=== PATIENT | female | born 1995 | race Caucasian/White ===

== ENCOUNTER 2016-11-20 13:47 | Emergency (ER) | payer OTHER ==
[2016-11-20 16:28] VITALS: BP 92/61
[2016-11-20] MEDS ORDERED: Ondansetron ODT TAB* 4 MG PO ONE ×2 (17:10→18:12)
--- NOTE | 2016-11-21 07:53 | UC ---
Chance Gale Aidan, scribed for Carmelita Dexter MD on 11/20/16 at 1722 . Dizzy HPI HPI Summary: 21 y/o female presents to the Urgent Care with a complaint of dizziness / with some vertigo, n/v, palpitations, and dehydration that began this morning when she woke up. Her dizziness is described as seeing the room spinning up and around. It is aggravated by movement. Last night, she had several alcoholic drinks, and not much water. [place] dizzy, but particularly bad this morning. She is concerned 2/2 this has happened several times after alcohol, and feels like it is worse than an expected hangover. No recent illness, altthough Several days ago, she lost her voice. Pt denies any diarrhea, urinary symptoms, or rash. Her last period was a week ago. Pain associated with her symptoms is 3/10. Denies hx head trauma, cardiac issues, dm. - History Of Current Complaint Chief Complaint: UCDizziness Stated Complaint: VOMITING,DIZZY Hx Obtained From: Patient Hx Last Menstrual Period: 11/14/16 ?: No Onset/Duration: Sudden Onset, Lasting Hours, Still Present Timing: Constant Severity Initially: Moderate Severity Currently: Moderate Pain Intensity: 3 Pain Scale Used: 0-10 Numeric Character: Dizzy - see HPI Aggravating Factor(s): Exertion - movement Alleviating Factor(s): Nothing - unknown Associated Signs And Symptoms: Positive: Vomiting. Negative: Negative - dizziness, dehydration, vomiting, confusion, mild cough - Risk Factors Cardiac Risk Factors: Smoking - former smoker - Allergies/Home Medications Allergies/Adverse Reactions: Allergies Allergy/AdvReac Type Severity Reaction Status Date / Time Nickel Allergy Severe Rash Verified 11/20/16 16:29 Thimerosal Allergy Unknown Unknown Verified 11/20/16 16:29 Reaction Details Latex Allergy Rash Verified 11/20/16 16:29 PMH/Surg Hx/FS Hx/Imm Hx Previously Healthy: Yes Endocrine History Of: Denies: Diabetes, Thyroid Disease Cardiovascular History Of: Denies: Cardiac Disorders, Hypertension Respiratory History Of: Denies: COPD, Asthma GI/ History Of: Denies: Ulcer - Surgical History Surgical History: Yes Surgery Procedure, Year, and Place: MOLE REMOVAL. 2016 second mole removed - Family History Known Family History: Positive: Diabetes - Social History Occupation: Employed Full-time Lives: Alone Alcohol Use: Occasionally Substance Use Type: Marijuana Smoking Status (MU): Former Smoker Type: Cigarettes Length of Time of Smoking/Using Tobacco: 1 yr - Immunization History Most Recent Influenza Vaccination: denies Review of Systems Constitutional: Other - dehydration, dizziness Skin: Negative Eyes: Negative ENT: Negative Respiratory: Cough - mild Cardiovascular: Negative Gastrointestinal: Vomiting Genitourinary: Negative Motor: Negative Neurovascular: Negative Musculoskeletal: Negative Neurological: Negative Psychological: Negative All Other Systems Reviewed And Are Negative: Yes Physical Exam Triage Information Reviewed: Yes Appearance: Well-Nourished Vital Signs: Initial Vital Signs Temp 98.2 F 11/20/16 16:21 Pulse 74 11/20/16 16:21 Resp 16 11/20/16 16:21 BP 92/61 11/20/16 16:21 Pulse Ox 100 11/20/16 16:21 Vital Signs Reviewed: Yes Eye Exam: Normal, Other - mild horiz nystagmus, R > L. Fundi nondilated grossly benign. PERRLA EOMI SW CP ENT Exam: Normal ENT: Positive: Other: - mild runny nose Neck exam: Normal, Other Neck: Positive: No Lymphadenopathy Respiratory Exam: Normal, Other - normal, no dyspnea, no tachypnea, normal respiratory rate Respiratory: Positive: Chest non-tender, Lungs clear, Normal breath sounds, No respiratory distress, No accessory muscle use, Other: - normal, no dyspnea, no tachypnea, normal respiratory rate Cardiovascular Exam: Normal Cardiovascular: Positive: RRR, Pulses Normal, Brisk Capillary Refill, Other: - good general skin color, good capillary refill. Negative: No Murmur - recumbant systolic murmur, 1-2/6, no murmur sitting up Abdominal Exam: Normal Abdomen Description: Positive: Nontender, No Organomegaly, Soft Bowel Sounds: Positive: Present, Hyperactive Musculoskeletal Exam: Normal Musculoskeletal: Positive: Strength Intact Neurological Exam: Normal, Other - non-focal, grossly intact. non-tremulous. gait steady. Psychological Exam: Normal, Other - conversing easily and appropriately Skin Exam: Normal, Other - no visible rashes good color Diagnostics - EKG Cardiac Rate: NL - 60 Cardiac Rhythm: Sinus: Normal - SINUS RHYTHM,prolonged MT interval 219 qtc 421 Dizzy Course/Dx - Course Course Of Treatment: No new problems in CCC. Able to drink po liquid s/p zofran odt. Feels better. EKG reviewed with pt. No old for comp. Advised f/ u with pcp for recheck, and cardiac further eval. Zofran dispensed to go home. Blood tests ordered. Questions answered to the best of my ability. - Differential Dx/Diagnosis Provider Diagnoses: Dizziness. Volume depletion Discharge - Discharge Plan Condition: Stable Disposition: HOME Prescriptions: Ondansetron [Zofran 4 MG Odt] 4 mg PO Q8HR PRN #20 tab PRN Reason: Nausea Patient Education Materials: Dehydration (ED), Lightheadedness (ED), Dizziness (ED) Forms: *Work Release Referrals: Hilary Wheat MD [Primary Care Provider] - Additional Instructions: Follow up with Dr. Wheat - call Wednesday for appointment this week. Seek medical attention sooner for worse or new problems in the meantime. Blood tests: cbc bmp magnesium EKG today attached - please take with you to your doctor appointment. Hydrate as much as possible. The documentation as recorded by the Chance amaya Aidan accurately reflects the service I personally performed and the decisions made by me, Carmelita Dexter MD.
[2016-11-21 12:53] LABS: Hematocrit 39 % (35-47); Hemoglobin 13.2 g/dl (12.0-16.0); Mean Corpuscular HGB Conc 34 g/dl (31-36); Mean Corpuscular Hemoglobin 31 pg (27-31); Mean Corpuscular Volume 91 fL (80-97); Mean Platelet Volume 10 um3 (7.4-10.4); Red Blood Count 4.26 10^6/ul (4.0-5.4); Red Cell Distribution Width 12 % (10.5-15); White Blood Count 8.8 10^3/ul (3.5-10.8)
[2016-11-21 13:04] LABS: BUN/Creatinine Ratio 15.4 (8-20); Calcium 9.8 mg/dL (8.6-10.3); EGFR African American 145.3 (>60); Magnesium 2.1 mg/dL (1.9-2.7); Potassium 4.3 mmol/L (3.5-5.0)
== END 2016-11-20 18:41 | disposition home or self-care (01) ==
LOC: UCEAST 13:47
DX: E86.0 Dehydration (principal); F12.90 Cannabis use, unspecified, uncomplicated; R42 Dizziness and giddiness; Z87.891 Personal history of nicotine dependence
CPT/HCPCS: 36415; 80048; 81003; 83735; 84702; 85025; 93005; 99212; A9270-GY; G0463